=== PATIENT | male | born 1980 | race Caucasian/White ===

== ENCOUNTER → 2018-06-01 | Outpatient (CLI) | payer OTHER ==
[~2018-06-01] MED LIST: KEFLEX500 MG PO; MOTRIN800 MG PO; PERCOCET 5/31 TABLET PO; TYLENOL REGULA325 MG PO; ZOFRAN ODT4 MG PO
== END | disposition home or self-care (01) ==
LOC: CDC 10:18
DX: Z01.810 Encounter for preprocedural cardiovascular examination (principal); S83.231D Complex tear of medial meniscus, current injury, right knee, subsequent encounter; M25.461 Effusion, right knee; M25.561 Pain in right knee
CPT/HCPCS: 93000